=== PATIENT | female | born 1980 | race American Indian/Alaskan Native ===

== ENCOUNTER 2020-06-04 18:53 | Emergency (ER) | payer SELFPAY ==
[2020-06-04] MEDS ORDERED: ACETAMINOPHEN 325 MG TAB ONE (21:59)
[2020-06-04] MEDS ORDERED: ACETAMINOPHEN 325 MG TAB PO ONE (22:06)
[2020-06-05] MEDS ORDERED: predniSONE 20 MG TAB PO ONE (00:29)
[2020-06-05] MEDS ORDERED: AMOXICILLIN/K CLAV 875/125MG TAB PO ONE (00:29)
[2020-06-05] MEDS ORDERED: IBUPROFEN 800 MG TAB PO ONE (00:29)
--- NOTE | 2020-06-05 01:17 | Emergency Department Report ---
ED General Adult HPI - General Chief complaint: Earache Stated complaint: EAR AND NECK PAIN Source: patient Mode of arrival: Ambulatory Limitations: No Limitations - History of Present Illness Initial comments: Patient is a 40-year-old -[place] female with a history of hypertension who presents to the ED with complaint of acute onset persistent frontal sinus pressure and headache, nasal and sinus congestion, severe bilateral ear pain, diffuse body aches and pains, intermittent fever and chills for the last 3 days. Patient states that she has been taking yaax-toi-iwmacgp medications with no relief. Patient states that no one else at home is had similar symptoms. Patient denies cough, dizziness, syncope, chest pain, shortness of breath, sore throat, change in vision, nausea and vomiting or diarrhea, abdominal pain, dysuria, urinary frequency and urgency, seizure or back pain. MD Complaint: Nasal and sinus congestion; bilateral ear pain -: Sudden, days(s) (3) Location: head, face Radiation: non-radiation Severity scale (0 -10): 8 Quality: aching, sharp Consistency: constant Improves with: none Worsens with: none Associated Symptoms: denies other symptoms, fever/chills, headaches, loss of appetite, malaise. denies: confusion, chest pain, cough, diaphoresis, nausea/vomiting, rash, seizure, shortness of breath, syncope, other Treatments Prior to Arrival: none - Related Data Previous Rx's Medication Instructions Recorded Last Taken Type Amoxicillin/Potassium Clav 1 each PO Q12H #20 tablet 06/05/20 Unknown Rx [Augmentin 875-125 Tablet] Cetirizine HCl [Zyrtec 10mg tab] 10 mg PO DAILY #30 tablet 06/05/20 Unknown Rx Ibuprofen [Motrin] 800 mg PO Q8HR PRN #30 tablet 06/05/20 Unknown Rx methylPREDNISolone [Medrol 4MG 4 mg PO DAILY #21 tab.ds.pk 06/05/20 Unknown Rx DOSEPAK (21 tabs)] Allergies Allergy/AdvReac Type Severity Reaction Status Date / Time No Known Allergies Allergy Verified 06/04/20 19:48 ED Review of Systems ROS: Stated complaint: EAR AND NECK PAIN Other details as noted in HPI Constitutional: chills, fever, malaise, weakness Eyes: denies: eye pain, eye discharge, vision change ENT: ear pain (Bilateral ear pain), congestion, other (Frontal sinus pressure). denies: throat pain Respiratory: denies: cough, shortness of breath, wheezing Cardiovascular: denies: chest pain, palpitations Endocrine: no symptoms reported Gastrointestinal: denies: abdominal pain, nausea, vomiting, diarrhea, hematochezia Genitourinary: denies: urgency, dysuria, discharge Musculoskeletal: denies: back pain, joint swelling, arthralgia Skin: denies: rash, lesions Neurological: denies: headache, weakness, paresthesias Psychiatric: denies: anxiety, depression Hematological/Lymphatic: denies: easy bleeding, easy bruising ED Past Medical Hx - Past Medical History Previous Medical History?: Yes Hx Hypertension: Yes Additional medical history: FIBROIDS - Surgical History Past Surgical History?: Yes Hx Cholecystectomy: Yes Additional Surgical History: HERNIA REPAIR, LEAP, ABNORMAL PAPS 1995 - Social History Smoking Status: Never Smoker Substance Use Type: Alcohol - Medications Home Medications: Home Medications Medication Instructions Recorded Confirmed Last Taken Type Amoxicillin/Potassium Clav 1 each PO Q12H #20 tablet 06/05/20 Unknown Rx [Augmentin 875-125 Tablet] Cetirizine HCl [Zyrtec 10mg tab] 10 mg PO DAILY #30 tablet 06/05/20 Unknown Rx Ibuprofen [Motrin] 800 mg PO Q8HR PRN #30 tablet 06/05/20 Unknown Rx methylPREDNISolone [Medrol 4MG 4 mg PO DAILY #21 tab.ds.pk 06/05/20 Unknown Rx DOSEPAK (21 tabs)] ED Physical Exam - General Limitations: No Limitations General appearance: alert, in no apparent distress - Head Head exam: Present: atraumatic, normocephalic, normal inspection - Eye Eye exam: Present: normal appearance, PERRL, EOMI - ENT ENT exam: Present: normal orophraynx, mucous membranes moist, normal external ear exam, other (Erythematous bulging bilateral tympanic membranes; palpable frontal and maxillary sinus tenderness; grossly congested nasal passages) - Neck Neck exam: Present: normal inspection, full ROM, lymphadenopathy - Respiratory Respiratory exam: Present: normal lung sounds bilaterally. Absent: respiratory distress, wheezes, rales, stridor, chest wall tenderness, decreased breath sounds, prolonged expiratory - Cardiovascular Cardiovascular Exam: Present: normal rhythm, tachycardia, normal heart sounds. Absent: systolic murmur, diastolic murmur, rubs, gallop - GI/Abdominal GI/Abdominal exam: Present: soft, normal bowel sounds. Absent: tenderness, guarding, hyperactive bowel sounds, hypoactive bowel sounds, organomegaly - Extremities Exam Extremities exam: Present: normal inspection, full ROM, normal capillary refill - Back Exam Back exam: Present: normal inspection, full ROM. Absent: tenderness, CVA tenderness (R), muscle spasm, paraspinal tenderness - Neurological Exam Neurological exam: Present: alert, oriented X3, CN II-XII intact, normal gait, reflexes normal - Psychiatric Psychiatric exam: Present: normal affect, normal mood - Skin Skin exam: Present: warm, dry, intact, normal color. Absent: rash ED Course Vital Signs 06/04/20 06/04/20 06/04/20 19:46 19:48 22:05 Temperature 101.3 F H 99.9 F H Pulse Rate 102 H 95 H Respiratory 14 18 Rate Blood Pressure 176/121 Blood Pressure 178/110 161/108 [Right] O2 Sat by Pulse 98 Oximetry 06/04/20 22:12 Temperature Pulse Rate Respiratory 20 Rate Blood Pressure Blood Pressure [Right] O2 Sat by Pulse Oximetry ED Medical Decision Making - Medical Decision Making This is a 40-year-old -[place] female with a history of hypertension who presents to the ED with complaint of acute onset persistent frontal sinus pressure and headache, nasal and sinus congestion, severe bilateral ear pain, diffuse body aches and pains, intermittent fever and chills for the last 3 days. Patient states that she has been taking arki-xro-gkdahnw medications with no relief. Patient states that no one else at home is had similar symptoms. In the ED, patient is alert and oriented x3 and is not in distress but tachycardic and febrile in triage. Patient was treated for fever in the ED and also given initial oral antibiotics based on the physical exam findings. On reevaluation, patient's pain as well as fever resolved with medications. Patient was discharged home on medications and advised to follow-up with her primary care physician in 7 to 10 days for reevaluation or return to the ED immediately if symptoms get worse. - Differential Diagnosis sinusitis; URI; otitis media; pneumonia; viral syndrome Critical care attestation.: If time is entered above; I have spent that time in minutes in the direct care of this critically ill patient, excluding procedure time. ED Disposition Clinical Impression: Acute non-recurrent frontal sinusitis, Acute upper respiratory infection, Fever and chills, Acute otitis media with effusion of both ears Disposition: DC- TO HOME OR SELFCARE Is pt being admited?: No Does the pt Need Aspirin: No Condition: Stable Instructions: Otitis Media (ED), Acute Bacterial Rhinosinusitis (ED), Upper Respiratory Infection (ED), Fever in Adults (ED) Additional Instructions: Take medication with food, drink plenty of fluids and follow-up with your primary care physician in 5 to 7 days for reevaluation. Return to the ED immediately if symptoms get worse. Prescriptions: Amoxicillin/Potassium Clav [Augmentin 875-125 Tablet] 1 each PO Q12H #20 tablet methylPREDNISolone [Medrol 4MG DOSEPAK (21 tabs)] 4 mg PO DAILY #21 tab.ds.pk Ibuprofen [Motrin] 800 mg PO Q8HR PRN #30 tablet PRN Reason: Pain , Severe (7-10) Cetirizine HCl [Zyrtec 10mg tab] 10 mg PO DAILY #30 tablet Referrals: PRIMARY CARE, [Primary Care Provider] - 3-5 Days Forms: Work/School Release Form(ED) Time of Disposition: 01:20 Print Language: TAMAZIGHT
[2020-06-05 02:31] VITALS: BP 152/88
== END 2020-06-05 01:45 | disposition home or self-care (01) ==
LOC: ED 18:53
DX: J01.10 Acute frontal sinusitis, unspecified (principal); J06.9 Acute upper respiratory infection, unspecified; H65.193 Other acute nonsuppurative otitis media, bilateral; I10 Essential (primary) hypertension
CPT/HCPCS: 99282; J7512

== ENCOUNTER 2020-12-20 11:40 | Emergency (ER) | payer OTHER ==
[2020-12-20 11:46] VITALS: BP 147/105
--- NOTE | 2020-12-20 11:49 | Event Note ---
ED Screening Note ED Screening Note: [facility] htn co stomach not feeling right vomiting all am lmp just had psh d/c leap rx norvasc hctz pcp Aide Dick This initial assessment/diagnostic orders/clinical plan/treatment(s) is/are subject to change based on patients health status, clinical progression and re- assessment by fellow clinical providers in the ED. Further treatment and workup at subsequent clinical providers discretion. Patient/guardian urged not to elope from the ED as their condition may be serious if not clinically assessed and managed. Initial orders include: labs/ua
[2020-12-20] MEDS ORDERED: SODIUM CHLORIDE 0.9% 1000 ML 1,000 ML IV ONE (12:49)
[2020-12-20] MEDS ORDERED: MORPHINE 2 MG/1 ML INJ IV ONE ×2 (12:49→13:36)
[2020-12-20] MEDS ORDERED: ONDANSETRON 4 MG/2 ML INJ IV ONE (12:49)
[2020-12-20] MEDS ORDERED: LOPERAMIDE 2 MG CAP PO ONE (12:52)
--- NOTE | 2020-12-20 13:10 | Emergency Department Report ---
ED N/V/D HPI - General Chief complaint: Abdominal Pain Stated complaint: VOMITING/STOMACH PAIN Time Seen by Provider: 12/20/20 11:47 Source: patient Mode of arrival: Ambulatory Limitations: No Limitations - History of Present Illness Initial comments: 40-year-old female, history of hypertension, acid reflux, presents to ED with nausea, vomiting, diarrhea since this morning. Patient states her granddaughter also woke up with the symptoms as well. Patient reports they both ate [employer] last night and symptoms possibly related to the food. Patient denies any fever. She reports she has been having some sinus congestion and pain over the last 3 days. She denies any cough or shortness of breath. MD complaint: nausea, vomiting, diarrhea, abdominal pain -: This morning Description of Vomiting: watery Description of Diarrhea: water Associated Abdominal Pain: Yes Location: epigastric Radiation: none Severity: mild Consistency: intermittent Improves with: none Worsens with: none Associated Symptoms: nausea/vomiting. denies: cough, fever/chills, shortness of breath - Related Data Previous Rx's Medication Instructions Recorded Last Taken Type Amoxicillin/Potassium Clav 1 each PO Q12H #20 tablet 06/05/20 Unknown Rx [Augmentin 875-125 Tablet] Cetirizine HCl [Zyrtec 10mg tab] 10 mg PO DAILY #30 tablet 06/05/20 Unknown Rx Ibuprofen [Motrin] 800 mg PO Q8HR PRN #30 tablet 06/05/20 Unknown Rx methylPREDNISolone [Medrol 4MG 4 mg PO DAILY #21 tab.ds.pk 06/05/20 Unknown Rx DOSEPAK (21 tabs)] Dicyclomine [Bentyl] 20 mg PO QID PRN #20 tablet 12/20/20 Unknown Rx Ondansetron [Zofran Odt] 4 mg PO Q8HR PRN #20 tab.rapdis 12/20/20 Unknown Rx Allergies Allergy/AdvReac Type Severity Reaction Status Date / Time No Known Allergies Allergy Verified 06/04/20 19:48 ED Review of Systems ROS: Stated complaint: VOMITING/STOMACH PAIN Other details as noted in HPI Comment: All other systems reviewed and negative Constitutional: denies: fever ENT: congestion Respiratory: denies: cough, shortness of breath Gastrointestinal: abdominal pain, nausea, vomiting, diarrhea ED Past Medical Hx - Past Medical History Previous Medical History?: Yes Hx Hypertension: Yes Additional medical history: FIBROIDS - Surgical History Past Surgical History?: Yes Hx Cholecystectomy: Yes Additional Surgical History: HERNIA REPAIR, LEAP, ABNORMAL PAPS 1995 - Social History Smoking Status: Never Smoker Substance Use Type: None - Medications Home Medications: Home Medications Medication Instructions Recorded Confirmed Last Taken Type Amoxicillin/Potassium Clav 1 each PO Q12H #20 tablet 06/05/20 Unknown Rx [Augmentin 875-125 Tablet] Cetirizine HCl [Zyrtec 10mg tab] 10 mg PO DAILY #30 tablet 06/05/20 Unknown Rx Ibuprofen [Motrin] 800 mg PO Q8HR PRN #30 tablet 06/05/20 Unknown Rx methylPREDNISolone [Medrol 4MG 4 mg PO DAILY #21 tab.ds.pk 06/05/20 Unknown Rx DOSEPAK (21 tabs)] Dicyclomine [Bentyl] 20 mg PO QID PRN #20 tablet 12/20/20 Unknown Rx Ondansetron [Zofran Odt] 4 mg PO Q8HR PRN #20 tab.rapdis 12/20/20 Unknown Rx ED Physical Exam - General Limitations: No Limitations General appearance: alert, in no apparent distress - Head Head exam: Present: atraumatic, normocephalic - Eye Eye exam: Present: normal appearance, EOMI - ENT ENT exam: Present: mucous membranes moist - Neck Neck exam: Present: normal inspection - Respiratory Respiratory exam: Present: normal lung sounds bilaterally. Absent: respiratory distress - Cardiovascular Cardiovascular Exam: Present: normal rhythm, tachycardia - GI/Abdominal GI/Abdominal exam: Present: soft. Absent: distended, tenderness - Extremities Exam Extremities exam: Present: normal inspection - Neurological Exam Neurological exam: Present: alert, oriented X3 - Psychiatric Psychiatric exam: Present: normal affect, normal mood - Skin Skin exam: Present: warm, dry, intact, normal color. Absent: rash ED Course Vital Signs 12/20/20 12/20/20 12/20/20 11:45 11:46 13:37 Temperature 99.0 F Pulse Rate 102 H Respiratory 19 18 Rate Blood Pressure 147/105 [Right] O2 Sat by Pulse 99 Oximetry 12/20/20 14:07 Temperature Pulse Rate Respiratory 18 Rate Blood Pressure [Right] O2 Sat by Pulse Oximetry ED Medical Decision Making - Lab Data Result diagrams: 12/20/20 14:10 12/20/20 14:22 - Medical Decision Making 40-year-old female presents to ED with vomiting and diarrhea. Possible food poisoning as patient states her granddaughter had similar symptoms. She also reports some sinus congestion. Labs are unremarkable. Patient feels much better following IV fluids, Zofran, morphine, Imodium. Patient advised to obtain outpatient COVID-19 testing. She will be discharged at this time. Return precautions given. Scription's given. - Differential Diagnosis Gastroenteritis, COVID-19 Critical care attestation.: If time is entered above; I have spent that time in minutes in the direct care of this critically ill patient, excluding procedure time. ED Disposition Clinical Impression: Vomiting and diarrhea Disposition: - TO HOME OR SELFCARE Is pt being admited?: No Condition: Stable Instructions: Diarrhea, Adult, COVID-19, Nausea and Vomiting, Adult, Abdominal Pain (ED) Additional Instructions: Outpatient COVID-19 testing is recommended. Prescriptions: Dicyclomine [Bentyl] 20 mg PO QID PRN #20 tablet PRN Reason: abdominal pain Ondansetron [Zofran Odt] 4 mg PO Q8HR PRN #20 tab.rapdis PRN Reason: Vomiting Referrals: PRIMARY CARE, [Primary Care Provider] - 3-5 Days [facility] [Provider Group] - 3-5 Days Time of Disposition: 15:31
[2020-12-20 13:15] LABS: Hematocrit 43.6 % (30.3-42.9); Hemoglobin 14.6 gm/dl (10.1-14.3); Mean Corpuscular HGB Conc 33 % (30-34); Mean Corpuscular Volume 87 fl (79-97); Platelet Count 424 K/mm3 (140-440); Red Cell Distribution Width 13.9 % (13.2-15.2)
[2020-12-20 13:46] LABS: BUN/Creatinine Ratio TNR; Blood Urea Nitrogen TNR mg/dL (7-17)
[2020-12-20 13:47] LABS: Alanine Aminotransferase TNR units/L (7-56); Albumin TNR g/dL (3.9-5); Calcium TNR mg/dL (8.4-10.2); Hemolysis Index TNR
[2020-12-20 14:30] LABS: Hematocrit 44.4 % (30.3-42.9); Hemoglobin 14.6 gm/dl (10.1-14.3); Mean Corpuscular HGB Conc 33 % (30-34); Mean Corpuscular Volume 89 fl (79-97); Platelet Count 390 K/mm3 (140-440); Red Blood Count 4.99 M/mm3 (3.65-5.03); Red Cell Distribution Width 14.4 % (13.2-15.2)
[2020-12-20 14:37] LABS: Bilirubin,Urine NEG (Negative); Blood,Urine NEG (Negative); Color,Urine Yellow (Yellow); HCG Qualitative,Urine Negative (Negative); Mucus,Urine FEW /HPF; Urobilinogen,Urine < 2.0 mg/dL (<2.0)
[2020-12-20 15:04] LABS: Alanine Aminotransferase 9 units/L (7-56); Albumin 4.3 g/dL (3.9-5); Blood Urea Nitrogen 14 mg/dL (7-17); Hemolysis Index 20
[2020-12-20 15:06] LABS: BUN/Creatinine Ratio 23
== END 2020-12-20 15:40 | disposition home or self-care (01) ==
LOC: ED 11:40
DX: R19.7 Diarrhea, unspecified (principal); R11.2 Nausea with vomiting, unspecified; R10.9 Unspecified abdominal pain; I10 Essential (primary) hypertension; Z90.49 Acquired absence of other specified parts of digestive tract; Z98.890 Other specified postprocedural states; Z79.2 Long term (current) use of antibiotics; Z79.899 Other long term (current) drug therapy
CPT/HCPCS: 36415; 80053; 81001; 81025; 84703; 85027; 96361; 96374; 96375; 99283; J2270; J2405; J7030

== ENCOUNTER 2021-07-18 14:16 | Emergency (ER) | payer OTHER | END 2021-07-18 19:15 | disposition left against medical advice (07) | LOC: ED 14:16 | DX: R10.9 Unspecified abdominal pain (principal); Z53.21 Procedure and treatment not carried out due to patient leaving prior to being seen by health care provider ==

== ENCOUNTER 2021-09-09 14:50 | Emergency (ER) | payer OTHER ==
[2021-09-09] MEDS ORDERED: KETOROLAC 30 MG/1 ML INJ IV ONE (15:39)
[2021-09-09] MEDS ORDERED: SODIUM CHLORIDE 0.9% 1000 ML 1,000 ML IV ONE (15:39)
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
[2021-09-09 16:18] LABS: Blood Urea Nitrogen 15 mg/dL (7-17); Calcium 9.9 mg/dL (8.4-10.2); Hemolysis Index 83
[2021-09-09 16:24] LABS: Hematocrit 43.1 % (30.3-42.9); Hemoglobin 14.6 gm/dl (10.1-14.3); Mean Corpuscular HGB Conc 34 % (30-34); Mean Corpuscular Volume 90 fl (79-97); Platelet Count 287 K/mm3 (140-440); Red Cell Distribution Width 14.8 % (13.2-15.2)
[2021-09-09 16:27] LABS: BUN/Creatinine Ratio 21
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
[2021-09-09 18:23] VITALS: BP 131/84
== END 2021-09-09 18:23 | disposition home or self-care (01) ==
LOC: ED 14:50
DX: S30.1XXA Contusion of abdominal wall, initial encounter (principal); I10 Essential (primary) hypertension; Z90.49 Acquired absence of other specified parts of digestive tract; Z72.89 Other problems related to lifestyle; Z79.899 Other long term (current) drug therapy; V87.7XXA Person injured in collision between other specified motor vehicles (traffic), initial encounter; Y93.89 Activity, other specified; Y92.488 Other paved roadways as the place of occurrence of the external cause; Y99.8 Other external cause status
CPT/HCPCS: 36415; 74177; 80048; 85027; 96361; 96374; 99284; J1885; J7030; Q9967